=== PATIENT | female | born 1960 | race Caucasian/White ===

== ENCOUNTER → 2016-08-30 | Outpatient (REF) | payer OTHER | LOC: M LABNEURO 16:55 | PROVIDERS: ATTEND Physician Assistant Medical | DX: E55.9 Vitamin D deficiency, unspecified (principal) ==

== ENCOUNTER → 2016-10-18 | Outpatient (CLI) | payer OTHER ==
[2016-10-18 17:38] LABS: FREE T4 0.86 NG/DL (0.76-1.46)
[2016-10-19 11:03] LABS: PRETREATED FOLATE FOR RBCFOL 12.9 NG/ML
== END ==
LOC: M WUC 11:32
DX: R41.3 Other amnesia (principal)

== ENCOUNTER → 2017-05-15 | Outpatient (CLI) | payer OTHER | LOC: M PAIN 14:30 | DX: G89.29 Other chronic pain (principal); M47.812 Spondylosis without myelopathy or radiculopathy, cervical region; M96.1 Postlaminectomy syndrome, not elsewhere classified; M54.12 Radiculopathy, cervical region; M79.1 Myalgia; G47.30 Sleep apnea, unspecified; G43.909 Migraine, unspecified, not intractable, without status migrainosus; Z79.899 Other long term (current) drug therapy; Z88.5 Allergy status to narcotic agent; Z88.8 Allergy status to other drugs, medicaments and biological substances | CPT/HCPCS: G0463 ==

== ENCOUNTER → 2017-06-18 | Outpatient (CLI) | payer BC, OTHER ==
[~2017-06-18] MED LIST: BUPIVACAINE HCL 0.25% 10 ML VIAL As Ordered; BUPIVACAINE HCL 0.25% 30 ML VIAL As Ordered; TRIAMCINOLONE ACETONIDE SUSP 40 MG/ML VIAL (J3301) As Ordered; diazePAM 5 MG TAB As Ordered; oxyCODONE 5MG TAB As Ordered
== END ==
LOC: M PAIN 14:15
DX: G89.29 Other chronic pain (principal); M79.1 Myalgia; Z79.899 Other long term (current) drug therapy; Z88.8 Allergy status to other drugs, medicaments and biological substances; Z91.048 Other nonmedicinal substance allergy status
CPT/HCPCS: J3301

== ENCOUNTER → 2017-07-02 | Outpatient (CLI) | payer BC, OTHER | LOC: M PAIN 11:00 | DX: M79.1 Myalgia (principal); M47.812 Spondylosis without myelopathy or radiculopathy, cervical region; M96.1 Postlaminectomy syndrome, not elsewhere classified; M54.12 Radiculopathy, cervical region; Z79.899 Other long term (current) drug therapy; Z88.8 Allergy status to other drugs, medicaments and biological substances; Z91.048 Other nonmedicinal substance allergy status | CPT/HCPCS: G0463 ==

== ENCOUNTER → 2017-08-20 | Outpatient (CLI) | payer BC | LOC: M PAIN 13:30 | DX: G89.29 Other chronic pain (principal); M54.2 Cervicalgia; M25.511 Pain in right shoulder; M25.512 Pain in left shoulder; M54.6 Pain in thoracic spine; M79.1 Myalgia; G47.30 Sleep apnea, unspecified; G43.109 Migraine with aura, not intractable, without status migrainosus; Z79.899 Other long term (current) drug therapy; Z88.5 Allergy status to narcotic agent; Z88.8 Allergy status to other drugs, medicaments and biological substances; Z91.02 Food additives allergy status; Z86.79 Personal history of other diseases of the circulatory system | CPT/HCPCS: J3301 ==

== ENCOUNTER → 2017-09-10 | Outpatient (CLI) | payer BC | LOC: M PAIN 10:15 | DX: M79.1 Myalgia (principal); M47.812 Spondylosis without myelopathy or radiculopathy, cervical region; M96.1 Postlaminectomy syndrome, not elsewhere classified; M54.12 Radiculopathy, cervical region; G47.30 Sleep apnea, unspecified; G43.109 Migraine with aura, not intractable, without status migrainosus; Z79.899 Other long term (current) drug therapy; Z88.5 Allergy status to narcotic agent; Z88.8 Allergy status to other drugs, medicaments and biological substances; Z91.018 Allergy to other foods; Z86.79 Personal history of other diseases of the circulatory system | CPT/HCPCS: G0463 ==

== ENCOUNTER → 2017-11-04 | Outpatient (CLI) | payer BC ==
[~2017-11-04] MED LIST changes: -BUPIVACAINE HCL 0.25% 10 ML VIAL As Ordered; +ISOVUE-M 300 61% 15ML VIAL (Q9967) As Ordered; +LIDOCAINE 1% SDV INJ 30 ML VIAL As Ordered; +MIDAZOLAM INJ 2 MG/2 ML VIAL (J2250) As Ordered; -diazePAM 5 MG TAB As Ordered; +fentaNYL 100 MCG/2 ML INJECTION (J3010) As Ordered; -oxyCODONE 5MG TAB As Ordered
== END ==
LOC: M PAIN 13:00
DX: G89.29 Other chronic pain (principal); M47.812 Spondylosis without myelopathy or radiculopathy, cervical region; G47.30 Sleep apnea, unspecified; M79.7 Fibromyalgia; G43.109 Migraine with aura, not intractable, without status migrainosus; Z79.899 Other long term (current) drug therapy; Z88.5 Allergy status to narcotic agent; Z88.8 Allergy status to other drugs, medicaments and biological substances; Z91.02 Food additives allergy status; Z86.79 Personal history of other diseases of the circulatory system
CPT/HCPCS: J3301

== ENCOUNTER → 2017-11-29 | Outpatient (CLI) | payer BC | LOC: M PAIN 13:15 | DX: M47.812 Spondylosis without myelopathy or radiculopathy, cervical region (principal); M79.1 Myalgia; G47.30 Sleep apnea, unspecified; G43.109 Migraine with aura, not intractable, without status migrainosus; H35.049 Retinal micro-aneurysms, unspecified, unspecified eye; Z79.899 Other long term (current) drug therapy; Z88.5 Allergy status to narcotic agent; Z88.8 Allergy status to other drugs, medicaments and biological substances; Z91.018 Allergy to other foods | CPT/HCPCS: G0463 ==

== ENCOUNTER → 2018-02-18 | Outpatient (CLI) | payer BC | LOC: M PAIN 08:45 | DX: M79.7 Fibromyalgia (principal); M47.812 Spondylosis without myelopathy or radiculopathy, cervical region; G43.109 Migraine with aura, not intractable, without status migrainosus; G47.30 Sleep apnea, unspecified; Z79.899 Other long term (current) drug therapy; Z88.5 Allergy status to narcotic agent; Z88.8 Allergy status to other drugs, medicaments and biological substances; Z91.02 Food additives allergy status | CPT/HCPCS: G0463 ==

== ENCOUNTER → 2018-02-27 | Outpatient (CLI) | payer BC, OTHER | LOC: M PAIN 16:00 | DX: M47.812 Spondylosis without myelopathy or radiculopathy, cervical region (principal); G89.29 Other chronic pain; M79.7 Fibromyalgia; G43.109 Migraine with aura, not intractable, without status migrainosus; G47.33 Obstructive sleep apnea (adult) (pediatric); E66.01 Morbid (severe) obesity due to excess calories; Z68.38 Body mass index [BMI] 38.0-38.9, adult; Z79.899 Other long term (current) drug therapy; Z88.5 Allergy status to narcotic agent; Z88.8 Allergy status to other drugs, medicaments and biological substances; Z91.02 Food additives allergy status | CPT/HCPCS: G0463 ==

== ENCOUNTER → 2018-03-12 | Outpatient (CLI) | payer BC ==
[~2018-03-12] MED LIST changes: +methylPREDNISolone SUSP 40 MG/ML (DEPO-medrol) VIAL (J1030) As Ordered
== END ==
LOC: M PAIN 10:15
DX: G89.29 Other chronic pain (principal); M47.812 Spondylosis without myelopathy or radiculopathy, cervical region; G47.30 Sleep apnea, unspecified; M79.7 Fibromyalgia; G43.909 Migraine, unspecified, not intractable, without status migrainosus; E66.01 Morbid (severe) obesity due to excess calories; Z68.38 Body mass index [BMI] 38.0-38.9, adult; Z79.899 Other long term (current) drug therapy; Z88.5 Allergy status to narcotic agent; Z88.8 Allergy status to other drugs, medicaments and biological substances; Z91.02 Food additives allergy status; Z86.79 Personal history of other diseases of the circulatory system; Z91.81 History of falling
CPT/HCPCS: J3301

== ENCOUNTER → 2018-04-12 | Outpatient (CLI) | payer BC, OTHER ==
[2018-04-12 16:49] LABS: BASO % 0.8 % (0.0-1.0); EOS # 0.1 10^3/uL (0.0-0.50); HEMATOCRIT 49.3 % (36.0-47.0); HEMOGLOBIN 16.3 g/dl (12.0-15.5); LYMPH # 2.2 10^3/uL (1.5-4.5); LYMPH % 43.7 % (24.0-44.0); MEAN CORPUSCULAR HEMOGLOBIN 31.3 pg (27.0-33.0); MEAN CORPUSCULAR HGB CONC 33.1 g/dl (32.0-36.5); MEAN CORPUSCULAR VOLUME 94.8 fl (80.0-96.0); MONO # 0.2 10^3/uL (0.0-0.8); MONO % 4.6 % (0.0-5.0); NEUTROPHILS # 2.4 10^3/uL (1.8-7.7); NEUTROPHILS % 48.7 % (36.0-66.0); PLATELET COUNT, AUTOMATED 277 10^3/uL (150-450)
[2018-04-12 16:58] LABS: ALBUMIN 3.7 GM/DL (3.2-5.2); ALT/SGPT 17 U/L (12-78); BILIRUBIN,TOTAL 0.7 MG/DL (0.2-1.0); BLOOD UREA NITROGEN 5 MG/DL (7-18); CALCIUM LEVEL 8.9 MG/DL (8.5-10.1); CARBON DIOXIDE LEVEL 27 MEQ/L (21-32); CHLORIDE LEVEL 106 MEQ/L (98-107); CHOLESTEROL LEVEL 357 MG/DL (<200); CREATININE FOR GFR 0.68 MG/DL (0.55-1.30); GLOMERULAR FILTRATION RATE > 60.0 (>51); GLUCOSE, FASTING 87 MG/DL (70-100); HDL CHOLESTEROL 73 MG/DL (>40); LDL CHOLESTEROL 265 MG/DL (<100); NON-HDL-C 284 MG/DL; POTASSIUM SERUM 3.9 MEQ/L (3.5-5.1); SODIUM LEVEL 142 MEQ/L (136-145); TRIGLYCERIDES LEVEL 93 MG/DL (<150)
[2018-04-12 17:20] LABS: HEMOGLOBIN A1c 5.4 %
== END ==
LOC: M WUC 11:01
PROVIDERS: ATTEND Physician Assistant
DX: F32.89 Other specified depressive episodes (principal)

== ENCOUNTER → 2018-10-21 | Outpatient (CLI) | payer BC, OTHER ==
[2018-10-21 17:40] LABS: BASO % 0.6 % (0.0-1.0); EOS # 0.2 10^3/uL (0.0-0.50); EOS % 2.4 % (0.0-3.0); HEMATOCRIT 42.8 % (36.0-47.0); HEMOGLOBIN 14.6 g/dl (12.0-15.5); INR 0.95; LYMPH # 3.1 10^3/uL (1.5-4.5); LYMPH % 42.9 % (24.0-44.0); MEAN CORPUSCULAR HEMOGLOBIN 31.7 pg (27.0-33.0); MEAN CORPUSCULAR HGB CONC 34.1 g/dl (32.0-36.5); MONO # 0.5 10^3/uL (0.0-0.8); MONO % 6.4 % (0.0-5.0); NEUTROPHILS # 3.4 10^3/uL (1.8-7.7); NEUTROPHILS % 47.6 % (36.0-66.0); PLATELET COUNT, AUTOMATED 285 10^3/uL (150-450); PROTHROMBIN TIME 12.4 SECONDS (11.8-14.0); WHITE BLOOD COUNT 7.2 10^3/uL (4.0-10.0)
== END ==
LOC: M WUC 14:45
PROVIDERS: ATTEND Neurological Surgery
DX: M47.22 Other spondylosis with radiculopathy, cervical region (principal)